=== PATIENT | female | born 1970 | race American Indian/Alaskan Native ===

== ENCOUNTER 2016-09-16 00:17 | Emergency (ER) | payer OTHER ==
--- NOTE | 2016-09-11 00:22 | Emergency Department Report ---
HPI - General Chief Complaint: Overdose Time Seen by Provider: 09/11/16 00:04 - HPI HPI: Patient took 2 handfuls of Benadryl pills, she was feeling stressed. Family thought this was done as a suicidal gesture. Patient drowsy minimal information obtained from her. ED Past Medical Hx - Past Medical History Previous Medical History?: Yes Hx Hypertension: Yes Additional medical history: fibromyalgia, anemia, pulmonary hypertension, bone spurs R shoulder - Surgical History Past Surgical History?: Yes Additional Surgical History: eye surgery "shorten the muscle between my eyes," "a couple of abortions" - Medications Home Medications: Home Medications Medication Instructions Recorded Confirmed Last Taken Type Iron 360 mg PO DAILY 09/11/16 09/11/16 09/10/16 11:00 History ED Review of Systems ROS: Stated complaint: OVERDOSE Other details as noted in HPI Physical Exam - Physical Exam Vital Signs: Vital Signs 09/11/16 00:06 Temperature 97.9 F Pulse Rate 88 Respiratory 14 Rate Blood Pressure 135/84 O2 Sat by Pulse 97 Oximetry Physical Exam: Gen. Drowsy but arousable Head atraumatic normocephalic Eyes PERR LA EOMI Chest regular rate and rhythm normal S1-S2 lungs clear bilaterally Abdomen soft nondistended Back no point tenderness paravertebral tenderness Neuro no focal deficit. Psych normal mood. ED Course Vital Signs 09/11/16 00:06 Temperature 97.9 F Pulse Rate 88 Respiratory 14 Rate Blood Pressure 135/84 O2 Sat by Pulse 97 Oximetry - Reevaluation(s) Reevaluation #1: 09/11/16 01:34 Poison control was contacted by nurse, it was recommended the patient be observed for the 6 hour prior to medical clearance. ED Medical Decision Making - Lab Data Result diagrams: 09/11/16 00:42 09/11/16 00:42 - EKG Data -: EKG Interpreted by Me EKG shows normal: sinus rhythm Rate: normal - EKG Data When compared to previous EKG there are: previous EKG unavailable Interpretation: no acute changes Critical care attestation.: If time is entered above; I have spent that time in minutes in the direct care of this critically ill patient, excluding procedure time. ED Disposition Clinical Impression: Suicidal behavior with attempted self-injury Is pt being admited?: No Does the pt Need Aspirin: No Condition: Stable Referrals: PRIMARY CARE, [Primary Care Provider] - 3-5 Days
[2016-09-11 00:57] LABS: Basophils % (Auto) 0.9 % (0.0-1.8); Eosinophils % (Auto) 1.8 % (0.0-4.3); Hematocrit 29.1 % (30.3-42.9); Mean Corpuscular HGB Conc 31 % (30-34); Mean Corpuscular Volume 72 fl (79-97); Platelet Count 271 K/mm3 (140-440); Red Blood Count 4.04 M/mm3 (3.65-5.03); Red Cell Distribution Width 19.2 % (13.2-15.2)
[2016-09-11 01:04] LABS: Mean Corpuscular Hemoglobin 22 pg (28-32)
[2016-09-11 01:15] LABS: Alanine Aminotransferase 12 units/L (7-56); Albumin 4.2 g/dL (3.9-5); Albumin/Globulin Ratio 1.2 %; Alkaline Phosphatase 89 units/L (35-129); Anion Gap 14 mmol/L; BUN/Creatinine Ratio 14.28; Blood Urea Nitrogen 10 mg/dL (7-17); Calcium 9.3 mg/dL (8.4-10.2); Carbon Dioxide 28 mmol/L (22-30); Chloride 103.4 mmol/L (98-107); Glucose 101 mg/dL (65-100); Potassium 3.5 mmol/L (3.6-5.0); Sodium 142 mmol/L (137-145); Total Protein 7.6 g/dL (6.3-8.2)
[2016-09-11 04:34] LABS: Urine Drugs of Abuse Note Disclamer
[2016-09-11 05:03] LABS: Bilirubin,Urine NEG (Negative); Blood,Urine NEG (Negative); Ketones,Urine TR mg/dL (Negative); Leukocyte Esterase,Urine NEG (Negative); Mucus,Urine 2+ /HPF; Nitrite,Urine NEG (Negative); Protein,Urine <15 mg/dL mg/dL (Negative); Urobilinogen,Urine < 2.0 mg/dL (<2.0)
--- NOTE | 2016-09-11 16:31 | Consultation ---
History of Present Illness - Reason for Consult Consult date: 09/11/16 Reason for consult: psychiatric evaluation, overdose - Chief Complaint Chief complaint: "PTSD" 46 year old female seen in the ER for psychiatric evaluation. She presented for overdose. Patient took 2 handfuls of Benadryl pills,. She reports taking 25 pills. Patient initially drowsy and later was alert for interview. She is irritable and dysphoric and reports the overdose was an impulsive attempt. She reports being triggered and had a flashback. She has a formal diagnosis of PTSD and has taken numerous SSRIs with poor response. She reports difficulty sleeping , anxiety, flashbacks, and hyperarousal symptoms. No psychotic signs/symptoms. No homicidal ideation. Per the record: - Past Medical History Previous Medical History?: Yes Hx Hypertension: Yes Additional medical history: fibromyalgia, anemia, pulmonary hypertension, bone spurs R shoulder - Surgical History Past Surgical History?: Yes Additional Surgical History: eye surgery "shorten the muscle between my eyes," "a couple of abortions" Social history per interview: Has a fiance. Guarded and agitated with further interviewing. Drinks alcohol occasionally- beer 2 weeks ago. no illicit substance use. UDS neg. Psychiatric history: previously on prozac, paxil, valium no suicide attempts previously Inpatient years ago. PTSD Medications and Allergies Allergies Allergy/AdvReac Type Severity Reaction Status Date / Time acetaminophen Allergy Severe Vomiting Verified 09/11/16 00:25 [From Tylenol-Codeine #3] codeine phosphate Allergy Severe Vomiting Verified 09/11/16 00:25 [From Tylenol-Codeine #3] Home Medications Medication Instructions Recorded Confirmed Last Taken Type Iron 360 mg PO DAILY 09/11/16 09/11/16 09/10/16 11:00 History Mental Status Exam - Vital signs Last Vital Signs Temp 98.2 F 09/11/16 11:37 Pulse 70 09/11/16 11:37 Resp 16 09/11/16 11:37 BP 136/76 09/11/16 11:37 Pulse Ox 98 09/11/16 11:37 Results Result Diagrams: 09/11/16 00:42 09/11/16 00:42 Abnormal lab results 09/11/16 09/11/16 09/11/16 Range/Units 00:42 00:42 00:42 Hgb 9.0 L (10.1-14.3) gm/dl Hct 29.1 L (30.3-42.9) % MCV 72 L (79-97) fl MCH 22 L (28-32) pg RDW 19.2 H (13.2-15.2) % Potassium 3.5 L (3.6-5.0) mmol/L Glucose 101 H (65-100) mg/dL Salicylates < 0.3 L (2.8-20.0) mg/dL All other labs normal. Assessment and Plan Assessment and plan: - Exam Orientation: time, place, person Affect: blunted Mood: irritable, dysphoric Thought content: denies SI, suicide attempt Thought Process: linear Perceptions: none Speech: normal rate and pattern Concentration: focused Motor activity: normal Level of consciousness: alert Memory: Intact Sleep Symptoms: Difficulty Falling Asleep Interaction: guarded Assessment and plan: Impression: suicide attempt PTSD DD: major depression Recommendation: She is currently on 1013. She declines medications due to poor response to previous medications. Recommend SSRI and this was discussed with her, risks vs. benefits.
--- NOTE | 2016-09-12 19:42 | Progress Note ---
Subjective - Reason for Consult Consult date: 09/12/16 Reason for consult: follow up - Chief Complaint Chief complaint: "I don't want to talk to anybody" 46 year old female seen in the ER for psychiatric evaluation. She presented for overdose. Patient reportedly took 2 handfuls of Benadryl pills,. She reports taking 25 pills. She remains irritable and dysphoric and reports the overdose was an impulsive attempt. She currently denies suicidal ideation. She is tearful and states she wants to go home. She is minimizing the ingestion of benadryl. No psychotic signs/symptoms. No homicidal ideation. Mental Status Exam - Vital signs Last Vital Signs Temp 98.7 F 09/12/16 09:51 Pulse 73 09/12/16 09:51 Resp 16 09/12/16 09:51 BP 107/61 09/12/16 09:51 Pulse Ox 95 09/12/16 09:51 Assessment and Plan - Exam Orientation: time, place, person Affect: blunted Mood: irritable, dysphoric Thought content: denies SI,, denies HI Thought Process: linear Perceptions: none Speech: normal rate and pattern Concentration: focused Motor activity: normal Level of consciousness: alert Memory: Intact Sleep Symptoms: Difficulty Falling Asleep Interaction: guarded Assessment and plan: Impression: suicide attempt PTSD DD: major depression Recommendation: She is currently on 1013. Transfer to inpatient psychiatric facility. She declines medications due to poor response to previous medications. Recommend SSRI and this was discussed with her, risks vs. benefits.
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
[2016-09-13] MEDS: ELAVIL PO SCH (22:08)
--- NOTE | 2016-09-14 14:23 | Progress Note ---
Subjective - Reason for Consult Consult date: 09/14/16 Reason for consult: Psychiatry Follow-up - Chief Complaint Chief complaint: "Hopefully" 46 year old female seen in the ER for psychiatric evaluation. Patient reportedly took 4 Benadryl pills possibly to overdose. Today patient is calm and cooperative during the assessment. She is adamant that she was not trying to kill herself when she took the pills. Per conversation with her boyfriend Chaparro Sanchez [phone] he stated that he felt that she did try to kill herself , because she has done this in the past. He stated she has a problem with depression and gambling (lottery tickets). He stated they got into an argument over money and "things" escalated. He stated if she is stable, she can return home. He want her to get therapy once discharged. She agree that she have a problem with gambling that needs to be addressed. She denies SI/HI's and AVH's. She rate her depression 4/10, with 10 being the worse. She is concerned that Chaparro may leave her. She denies any side effects from the Elavil. Mental Status Exam - Vital signs Last Vital Signs Temp 97.9 F 09/14/16 11:31 Pulse 93 H 09/14/16 11:31 Resp 20 09/14/16 11:32 BP 112/76 09/14/16 11:31 Pulse Ox 97 09/14/16 11:32 - Exam Narrative exam: MSE: Appearance: cooperative, emotional Behavior: regular eye contact Speech: regular rate and tone Mood: "Better" Affect: congruent Thought Process: linear Thought Content: denies SI/HI's and AVH's Motor Activity: lying in bed Cognition: A/Ox 3 Insight: fair Judgment:fair I Assessment and Plan Impression: Historical Dx: Depressive DO, PTSD. Today patient is calm and cooperative during the assessment. She denies SI/HI's. Recommendation/Plan: Continue 1013 with placement to inpatient psy services. Contiune Elavil 25 mg PO HS for depression/fibromyalgia. Discussed possible side effects of medication with patient. Discussed generalized coping skills with patient.
[2016-09-14] MEDS: ELAVIL PO SCH (22:09)
--- NOTE | 2016-09-15 15:13 | Progress Note ---
Subjective - Reason for Consult Consult date: 09/15/16 Reason for consult: follow up - Chief Complaint Chief complaint: "I'm getting better" 46 year old female seen in the ER for psychiatric evaluation. Patient reportedly took "4 or 5" Benadryl pills possibly to overdose. Today patient is calm and cooperative during the assessment. She is adamant that she was not trying to kill herself when she took the pills. She denies SI/HI's and AVH's. She is not dysphoric today and is interacting appropriately. Mental Status Exam - Vital signs Last Vital Signs Temp 98.6 F 09/15/16 08:15 Pulse 71 09/15/16 08:15 Resp 18 09/15/16 08:55 BP 102/60 09/15/16 08:15 Pulse Ox 99 09/15/16 08:15 Assessment and Plan - Exam Orientation: time, place, person Affect: congruent Mood: calm Thought content: denies SI, denies HI Thought Process: linear Perceptions: none Speech: normal rate and pattern Concentration: focused Motor activity: normal Level of consciousness: alert Memory: Intact Sleep Symptoms: improved Interaction: cooperative Assessment and plan: Impression: suicide attempt PTSD DD: major depression Recommendation: She is currently on 1013. Reevaluate in 24 hours. Continue Elavil for depressive symptoms.
[2016-09-15 20:02] VITALS: BP 122/76
[2016-09-15] MEDS: ELAVIL PO SCH (22:13)
[~2016-09-16 00:17] MED LIST: NACL 0.9% 1000 ML 1,000 ML IV ONE
--- NOTE | 2016-09-16 13:57 | Progress Note ---
Subjective - Reason for Consult Consult date: 09/16/16 Reason for consult: Psychiatry Follow-up - Chief Complaint Chief complaint: "I hope I can leave" 46 year old female seen in the ER for psychiatric evaluation. Patient reportedly took "4 or 5" Benadryl pills possibly to overdose. Today patient is calm and cooperative during the assessment. She continue to deny that she tried to kill herself by taking pills per her admission. I asked about her previous suicide attempt and she would not answer. She denies SI/HI's and AVH's. She rate her depression 5/10, with 10 being the worse. Mental Status Exam - Vital signs Last Vital Signs Temp 98.4 F 09/15/16 20:01 Pulse 94 H 09/15/16 20:01 Resp 16 09/16/16 12:41 BP 122/76 09/15/16 20:01 Pulse Ox 97 09/16/16 12:41 - Exam Narrative exam: MSE: Appearance: cooperative, emotional Behavior: regular eye contact Speech: regular rate and tone Mood: "okay" Affect: congruent Thought Process: circumstantial Thought Content: denies SI/HI's and AVH's Motor Activity: lying in bed Cognition: A/Ox 3 Insight: limited Judgment:limited Assessment and Plan Impression: Historical Dx: Depressive DO, PTSD. Today patient is calm and cooperative during the assessment. She denies SI/HI's. Recommendation/Plan: Continue 1013 with placement to inpatient psy services. Contiune Elavil 25 mg PO HS for depression/fibromyalgia. Discussed possible side effects of medication with patient. Discussed generalized coping skills with patient.
== END 2016-09-16 12:42 ==
LOC: ED 00:17
DX: T14.91 Suicide attempt (principal); I10 Essential (primary) hypertension
CPT/HCPCS: 36415; 80053; 80307; 81001; 81025; 85025; 96360; 96361; 99285; G0480; J7030; 80320

== ENCOUNTER 2016-10-13 11:00 | Inpatient (IN) | payer SELFPAY ==
[2016-10-13 11:51] LABS: Hematocrit 38.4 % (30.3-42.9); Mean Corpuscular HGB Conc 31 % (30-34); Mean Corpuscular Volume 74 fl (79-97); Platelet Count 357 K/mm3 (140-440); Red Blood Count 5.18 M/mm3 (3.65-5.03); White Blood Count 11.9 K/mm3 (4.5-11.0)
[2016-10-13 12:06] LABS: Alanine Aminotransferase 17 units/L (7-56); Albumin 4.6 g/dL (3.9-5); Albumin/Globulin Ratio 1.2 %; Alkaline Phosphatase 104 units/L (35-129); Anion Gap 20 mmol/L; BUN/Creatinine Ratio 8.33; Blood Urea Nitrogen 5 mg/dL (7-17); Calcium 9.7 mg/dL (8.4-10.2); Carbon Dioxide 28 mmol/L (22-30); Chloride 101.7 mmol/L (98-107); Glucose 100 mg/dL (65-100); Lipase 15 units/L (13-60); Potassium 4.4 mmol/L (3.6-5.0); Sodium 145 mmol/L (137-145); Total Protein 8.4 g/dL (6.3-8.2)
[2016-10-13 12:11] LABS: Mean Corpuscular Hemoglobin 23 pg (28-32); Red Cell Distribution Width 26.1 % (13.2-15.2)
[2016-10-13 12:14] LABS: Bilirubin,Urine NEG (Negative); Blood,Urine SM (Negative); Ketones,Urine TR mg/dL (Negative); Leukocyte Esterase,Urine NEG (Negative); Mucus,Urine FEW /HPF; Nitrite,Urine NEG (Negative); Urobilinogen,Urine < 2.0 mg/dL (<2.0)
[2016-10-13 13:04] LABS: Anisocytosis 3+; Basophils % (Manual) 0 % (0.0-1.8); Blastocytes % (Manual) 0 %; Diff Status Complete; Hypochromasia 1+
[2016-10-13] MEDS ORDERED: PEPCID IV ONE (21:06)
[2016-10-13] MEDS ORDERED: DILAUDID IV ONE (21:06)
[2016-10-13] MEDS ORDERED: NACL 0.9% 1000 ML 1,000 ML IV ONE (21:06)
[2016-10-13] MEDS ORDERED: ZOFRAN IV ONE (21:06)
[2016-10-13] MEDS ORDERED: BENTYL IM ONE (21:06)
--- NOTE | 2016-10-13 21:07 | Emergency Department Report ---
ED General Adult HPI - General Chief complaint: Abdominal Pain Stated complaint: UPPER LEFT ABD PAIN Time Seen by Provider: 10/13/16 20:49 Source: patient, EMS (ems notes not available at time of chart dictation), RN notes reviewed, old records reviewed Mode of arrival: Ambulatory Limitations: No Limitations - History of Present Illness Initial comments: This is a 46-year-old female. The patient is previously unknown to me. Past medical history includes fibromyalgia, anemia, pulmonary hypertension. The patient presents to the ER with a complaint of left lateral chest wall pain , left lower quadrant abdominal pain, right upper quadrant abdominal pain, nausea and vomiting. No headache, neck pain, chest pain or shortness of breath. No homicidality or suicidality. The pain is sharp. It increases with palpation. It decreases with rest. She denies irritative and obstructive urinary symptoms. There is no diaphoresis. -: Gradual Location: abdomen Radiation: back Severity scale (0 -10): 6 Quality: aching Consistency: constant Improves with: rest Worsens with: movement Associated Symptoms: loss of appetite, malaise, nausea/vomiting, weakness. denies: confusion, chest pain, cough, syncope - Related Data Home Medications Medication Instructions Recorded Confirmed Last Taken Pantoprazole [Protonix TAB] 20 mg PO QDAY 10/13/16 10/13/16 Unknown Allergies Allergy/AdvReac Type Severity Reaction Status Date / Time acetaminophen Allergy Severe Vomiting Verified 09/11/16 00:25 [From Tylenol-Codeine #3] codeine phosphate Allergy Severe Vomiting Verified 09/11/16 00:25 [From Tylenol-Codeine #3] ED Review of Systems ROS: Stated complaint: UPPER LEFT ABD PAIN Other details as noted in HPI Constitutional: malaise. denies: fever Eyes: denies: vision change ENT: denies: epistaxis Respiratory: denies: cough Cardiovascular: denies: chest pain Gastrointestinal: abdominal pain, nausea, vomiting Genitourinary: denies: urgency, dysuria Musculoskeletal: back pain Skin: denies: lesions Neurological: weakness Psychiatric: anxiety ED Past Medical Hx - Past Medical History Previous Medical History?: Yes Hx Hypertension: Yes (Pulmonary HTN;) Hx GERD: Yes Additional medical history: fibromyalgia, anemia, pulmonary hypertension, bone spurs R shoulder - Surgical History Past Surgical History?: Yes Additional Surgical History: eye surgery "shorten the muscle between my eyes," "a couple of abortions" - Social History Smoking Status: Current Every Day Smoker Substance Use Type: Alcohol - Medications Home Medications: Home Medications Medication Instructions Recorded Confirmed Last Taken Type Pantoprazole [Protonix TAB] 20 mg PO QDAY 10/13/16 10/13/16 Unknown History ED Physical Exam - General Limitations: No Limitations General appearance: alert, in no apparent distress - Head Head exam: Present: atraumatic, normocephalic - Eye Eye exam: Present: normal appearance, EOMI. Absent: nystagmus - ENT ENT exam: Present: normal exam, normal orophraynx, mucous membranes moist, normal external ear exam - Neck Neck exam: Present: normal inspection, full ROM. Absent: tenderness, meningismus - Respiratory Respiratory exam: Present: normal lung sounds bilaterally, chest wall tenderness (there is reproducible left sided lateral chest wall tenderness. The breast exam is unremarkable and within normal limits. Escorted by nurse Miryam Galvan). Absent: respiratory distress, wheezes, rales, rhonchi, stridor - Cardiovascular Cardiovascular Exam: Present: regular rate, normal rhythm, normal heart sounds. Absent: bradycardia, tachycardia, irregular rhythm, systolic murmur, diastolic murmur, rubs, gallop - GI/Abdominal GI/Abdominal exam: Present: soft, tenderness, normal bowel sounds. Absent: guarding, rebound, rigid, pulsatile mass - Extremities Exam Extremities exam: Present: normal inspection, full ROM, normal capillary refill. Absent: tenderness, pedal edema, joint swelling, calf tenderness - Back Exam Back exam: Present: normal inspection, full ROM, paraspinal tenderness. Absent : tenderness, CVA tenderness (R), CVA tenderness (L), muscle spasm - Neurological Exam Neurological exam: Present: alert, oriented X3, other (Extraocular movements intact. Tongue midline. No facial droop. Facial sensation intact to light touch in the V1, V2, V3 distribution bilaterally. 5 and 5 strength in 4 extremities.. Sensation is intact to light touch in 4 extremities.). Absent: motor sensory deficit - Psychiatric Psychiatric exam: Present: anxious - Skin Skin exam: Present: warm, dry, intact, normal color. Absent: rash ED Course Vital Signs 10/13/16 10/13/16 10/13/16 11:11 19:57 21:48 Temperature 98.0 F Pulse Rate 66 72 Respiratory 18 18 16 Rate Blood Pressure 171/104 Blood Pressure 171/94 [Right] O2 Sat by Pulse 99 100 Oximetry - Reevaluation(s) Reevaluation #1: 10/14/16 01:15 right upper quadrant ultrasound suggests cholecystitis. ED Medical Decision Making - Lab Data Result diagrams: 10/13/16 11:31 10/13/16 11:31 Vital Signs 10/13/16 10/13/16 10/13/16 11:11 19:57 21:48 Temperature 98.0 F Pulse Rate 66 72 Respiratory 18 18 16 Rate Blood Pressure 171/104 Blood Pressure 171/94 [Right] O2 Sat by Pulse 99 100 Oximetry Lab Results 10/13/16 10/13/16 10/13/16 Range/Units 11:31 11:31 11:31 WBC 11.9 H (4.5-11.0) K/mm3 RBC 5.18 H (3.65-5.03) M/mm3 Hgb 12.0 (10.1-14.3) gm/dl Hct 38.4 (30.3-42.9) % MCV 74 L (79-97) fl MCH 23 L (28-32) pg MCHC 31 (30-34) % RDW 26.1 H (13.2-15.2) % Plt Count 357 (140-440) K/mm3 Add Manual Diff Complete Total Counted 100 Seg Neuts % (Manual) 84.0 H (40.0-70.0) % Band Neutrophils % 0 % Lymphocytes % (Manual) 11.0 L (13.4-35.0) % Reactive Lymphs % (Man) 0 % Monocytes % (Manual) 4.0 (0.0-7.3) % Eosinophils % (Manual) 1.0 (0.0-4.3) % Basophils % (Manual) 0 (0.0-1.8) % Metamyelocytes % 0 % Myelocytes % 0 % Promyelocytes % 0 % Blast Cells % 0 % Nucleated RBC % Not Reportable Seg Neutrophils # Man 10.0 H (1.8-7.7) K/mm3 Band Neutrophils # 0.0 K/mm3 Lymphocytes # (Manual) 1.3 (1.2-5.4) K/mm3 Abs React Lymphs (Man) 0.0 K/mm3 Monocytes # (Manual) 0.5 (0.0-0.8) K/mm3 Eosinophils # (Manual) 0.1 (0.0-0.4) K/mm3 Basophils # (Manual) 0.0 (0.0-0.1) K/mm3 Metamyelocytes # 0.0 K/mm3 Myelocytes # 0.0 K/mm3 Promyelocytes # 0.0 K/mm3 Blast Cells # 0.0 K/mm3 WBC Morphology Not Reportable Hypersegmented Neuts Not Reportable Hyposegmented Neuts Not Reportable Hypogranular Neuts Not Reportable Smudge Cells Not Reportable Toxic Granulation Not Reportable Toxic Vacuolation Not Reportable Dohle Bodies Not Reportable Pelger-Huet Anomaly Not Reportable Gladys Rods Not Reportable Platelet Estimate Appears normal Clumped Platelets Not Reportable Plt Clumps, EDTA Not Reportable Large Platelets Not Reportable Giant Platelets Not Reportable Platelet Satelliting Not Reportable Plt Morphology Comment Not Reportable RBC Morphology Not Reportable Dimorphic RBCs Not Reportable Polychromasia Not Reportable Hypochromasia 1+ Poikilocytosis Not Reportable Anisocytosis 3+ Microcytosis Not Reportable Macrocytosis Not Reportable Spherocytes Not Reportable Pappenheimer Bodies Not Reportable Sickle Cells Not Reportable Target Cells Not Reportable Tear Drop Cells Not Reportable Ovalocytes Not Reportable Helmet Cells Not Reportable [place] Bodies Not Reportable Paxton Rings Not Reportable Verna Cells Not Reportable Bite Cells Not Reportable Crenated Cell Not Reportable Elliptocytes Not Reportable Acanthocytes (Spur) Not Reportable Rouleaux Not Reportable Hemoglobin C Crystals Not Reportable Schistocytes Not Reportable Malaria parasites Not Reportable Mars Bodies Not Reportable Hem Pathologist Commnt No PT (12.2-14.9) Sec. INR (0.87-1.13) APTT (24.2-36.6) Sec. D-Dimer (0-234) ng/mlDDU Sodium 145 (137-145) mmol/L Potassium 4.4 (3.6-5.0) mmol/L Chloride 101.7 (98-107) mmol/L Carbon Dioxide 28 (22-30) mmol/L Anion Gap 20 mmol/L BUN 5 L (7-17) mg/dL Creatinine 0.6 L (0.7-1.2) mg/dL Estimated GFR > 60 ml/min BUN/Creatinine Ratio 8.33 % Glucose 100 (65-100) mg/dL Lactic Acid (0.7-2.0) mmol/L Calcium 9.7 (8.4-10.2) mg/dL Total Bilirubin 0.50 (0.1-1.2) mg/dL AST 18 (5-40) units/L ALT 17 (7-56) units/L Alkaline Phosphatase 104 (35-129) units/L Total Protein 8.4 H (6.3-8.2) g/dL Albumin 4.6 (3.9-5) g/dL Albumin/Globulin Ratio 1.2 % Lipase 15 (13-60) units/L HCG, Qual Negative (Negative) Urine Color (Yellow) Urine Turbidity (Clear) Urine pH (5.0-7.0) Ur Specific [place] (1.003-1.030) Urine Protein (Negative) mg/dL Urine Glucose (UA) (Negative) mg/dL Urine Ketones (Negative) mg/dL Urine Blood (Negative) Urine Nitrite (Negative) Urine Bilirubin (Negative) Urine Urobilinogen (<2.0) mg/dL Ur Leukocyte Esterase (Negative) Urine WBC (Auto) (0.0-6.0) /HPF Urine RBC (Auto) (0.0-6.0) /HPF U Epithel Cells (Auto) (0-13.0) /HPF Urine Mucus /HPF 10/13/16 10/13/16 10/13/16 Range/Units 11:47 21:21 23:44 WBC (4.5-11.0) K/mm3 RBC (3.65-5.03) M/mm3 Hgb (10.1-14.3) gm/dl Hct (30.3-42.9) % MCV (79-97) fl MCH (28-32) pg MCHC (30-34) % RDW (13.2-15.2) % Plt Count (140-440) K/mm3 Add Manual Diff Total Counted Seg Neuts % (Manual) (40.0-70.0) % Band Neutrophils % % Lymphocytes % (Manual) (13.4-35.0) % Reactive Lymphs % (Man) % Monocytes % (Manual) (0.0-7.3) % Eosinophils % (Manual) (0.0-4.3) % Basophils % (Manual) (0.0-1.8) % Metamyelocytes % % Myelocytes % % Promyelocytes % % Blast Cells % % Nucleated RBC % Seg Neutrophils # Man (1.8-7.7) K/mm3 Band Neutrophils # K/mm3 Lymphocytes # (Manual) (1.2-5.4) K/mm3 Abs React Lymphs (Man) K/mm3 Monocytes # (Manual) (0.0-0.8) K/mm3 Eosinophils # (Manual) (0.0-0.4) K/mm3 Basophils # (Manual) (0.0-0.1) K/mm3 Metamyelocytes # K/mm3 Myelocytes # K/mm3 Promyelocytes # K/mm3 Blast Cells # K/mm3 WBC Morphology Hypersegmented Neuts Hyposegmented Neuts Hypogranular Neuts Smudge Cells Toxic Granulation Toxic Vacuolation Dohle Bodies Pelger-Huet Anomaly Gladys Rods Platelet Estimate Clumped Platelets Plt Clumps, EDTA Large Platelets Giant Platelets Platelet Satelliting Plt Morphology Comment RBC Morphology Dimorphic RBCs Polychromasia Hypochromasia Poikilocytosis Anisocytosis Microcytosis Macrocytosis Spherocytes Pappenheimer Bodies Sickle Cells Target Cells Tear Drop Cells Ovalocytes Helmet Cells [place] Bodies Paxton Rings Verna Cells Bite Cells Crenated Cell Elliptocytes Acanthocytes (Spur) Rouleaux Hemoglobin C Crystals Schistocytes Malaria parasites Mars Bodies Hem Pathologist Commnt PT 14.5 (12.2-14.9) Sec. INR 1.14 H (0.87-1.13) APTT 29.3 (24.2-36.6) Sec. D-Dimer 750.34 H (0-234) ng/mlDDU Sodium (137-145) mmol/L Potassium (3.6-5.0) mmol/L Chloride (98-107) mmol/L Carbon Dioxide (22-30) mmol/L Anion Gap mmol/L BUN (7-17) mg/dL Creatinine (0.7-1.2) mg/dL Estimated GFR ml/min BUN/Creatinine Ratio % Glucose (65-100) mg/dL Lactic Acid 0.70 (0.7-2.0) mmol/L Calcium (8.4-10.2) mg/dL Total Bilirubin (0.1-1.2) mg/dL AST (5-40) units/L ALT (7-56) units/L Alkaline Phosphatase (35-129) units/L Total Protein (6.3-8.2) g/dL Albumin (3.9-5) g/dL Albumin/Globulin Ratio % Lipase (13-60) units/L HCG, Qual (Negative) Urine Color Yellow (Yellow) Urine Turbidity Clear (Clear) Urine pH 7.0 (5.0-7.0) Ur Specific [place] 1.015 (1.003-1.030) Urine Protein 30 mg/dl (Negative) mg/dL Urine Glucose (UA) Neg (Negative) mg/dL Urine Ketones Tr (Negative) mg/dL Urine Blood Sm (Negative) Urine Nitrite Neg (Negative) Urine Bilirubin Neg (Negative) Urine Urobilinogen < 2.0 (<2.0) mg/dL Ur Leukocyte Esterase Neg (Negative) Urine WBC (Auto) 3.0 (0.0-6.0) /HPF Urine RBC (Auto) 2.0 (0.0-6.0) /HPF U Epithel Cells (Auto) 3.0 (0-13.0) /HPF Urine Mucus Few /HPF - EKG Data -: EKG Interpreted by Or EKG shows normal: sinus rhythm, axis, QRS complexes, ST-T waves - EKG Data When compared to previous EKG there are: no significant change 10/14/16 00:53 normal sinus, 96 beats minute, normal axis, QTC 469 ms, abnormal EKG, not morphologically consistent with STEMI, appears unchanged when compared to prior - Radiology Data Radiology results: report reviewed, image reviewed X-ray of the chest is negative. CT scan of the chest is negative for pulmonary embolus. Nonspecific pneumonitis /infiltrate is suggested. CT scan of the abdomen and pelvis suggest cholecystitis. Right upper quadrant ultrasound is pending at this time. - Medical Decision Making Differential diagnosis: Pneumonia, cholecystitis, tuberculosis, urinary tract infection Assessment and plan: 46-year-old female with a complaint of left lateral chest wall pain, abdominal pain, right upper quadrant pain. She does have a positive [place] sign. CT scan of the abdomen and pelvis suggest cholecystitis. CT scan of the chest suggest possible right upper lobe pneumonia. Clinical picture is complicated. Uncertain if the patient has true cholecystitis and atypical pneumonia or both. Case is discussed with the general surgeon on-call, Dr. Garnett, who will see the patient as a consult, and he recommends right upper quadrant ultrasound. The case is also discussed with the Hospital physician, Dr. Arnold, she accepts the patient to her service. Given that tuberculosis presenting atypically is in the differential, Levaquin/ fluoroquinolones will be withheld. The patient will be treated empirically with ceftriaxone and azithromycin, blood cultures will be drawn. Patient will be placed on isolation precautions. Critical care attestation.: If time is entered above; I have spent that time in minutes in the direct care of this critically ill patient, excluding procedure time. ED Disposition Clinical Impression: Cholecystitis, Right upper lobe consolidation Nausea and vomiting Qualifiers: Vomiting type: unspecified Vomiting Intractability: non-intractable Qualified Code(s): R11.2 - Nausea with vomiting, unspecified Disposition: DC-09 OP ADMIT IP TO THIS HOSP Is pt being admited?: Yes Condition: Good Instructions: Abdominal Pain (ED) Referrals: PRIMARY CARE, [Primary Care Provider] - 3-5 Days
[2016-10-13] MEDS ORDERED: NACL ONE (21:13)
[2016-10-13 21:43] LABS: INR 1.14 (0.87-1.13)
[2016-10-13 21:45] LABS: Partial Thromboplastin Time 29.3 Sec. (24.2-36.6)
--- NOTE | 2016-10-13 23:24 | Cat Scan Report ---
FINAL REPORT EXAM: CT ABDOMEN PELVIS W CON HISTORY: ruq, luq, left flank pain TECHNIQUE: Dynamic helical CT scan through the abdomen and pelvis during and again after intravenous injection of iodinated contrast. Images are reconstructed in the sagittal and coronal planes. Oral contrast was not given. PRIORS: None. FINDINGS: The lung bases are clear. The gallbladder wall is enhancing and thickened and there is pericholecystic fluid. There is a 2.0 cm stone in the gallbladder. There is no biliary dilatation. There is diffuse low-attenuation of the liver consistent with fatty infiltration. The liver is enlarged measuring 19.2 cm in craniocaudal dimension. The pancreas, spleen and adrenal glands appear normal. The kidneys appear normal. The pelvic organs appear grossly normal. The stomach appears grossly within normal limits. There are no abnormally dilated loops of bowel. The abdominal aorta has a normal diameter. The bones are diffusely sclerotic IMPRESSION: 1. Findings are consistent with acute cholecystitis and cholelithiasis. 2. Generalized osseous sclerosis of the entire skeleton may be due to myelofibrosis or osteopetrosis among other causes. Please correlate with clinical history. Renal osteodystrophy may also result in dense bones but the kidneys appear normal.
--- NOTE | 2016-10-13 23:34 | Cat Scan Report ---
FINAL REPORT EXAM: CT ANGIO CHEST HISTORY: left chest wall pain, back pain TECHNIQUE: High-resolution helical axial images were obtained of the chest during intravenous administration of iodinated contrast. Images are reconstructed in the sagittal and coronal planes. PRIORS: None. FINDINGS: There is no evidence of pulmonary embolism, the pulmonary arteries opacify normally. The heart and thoracic aorta appear normal. There is patchy interstitial thickening bilaterally. There are small ground-glass opacities in the right upper lobe. The bones are diffusely sclerotic. IMPRESSION: 1. Patchy interstitial thickening may be due to chronic interstitial lung disease. Small ground-glass opacities in the right upper lobe may represent early pneumonia or alveolitis. 2. No evidence of acute PE. 3. Generalized osseous sclerosis of the entire skeleton may be due to myelofibrosis or osteopetrosis among other causes. Please correlate with clinical history. Renal osteodystrophy may also result in dense bones but the kidneys appear normal.
[2016-10-13] MEDS ORDERED: ZOSYN/NS 4.5GM/100ML 4.5 GM/100 ML VIAL IV ONE (23:35)
[2016-10-14] MEDS ORDERED: ZITHROMAX 500 MG in NACL 0.9% 250ML 250 ML IV ONE (00:55)
[2016-10-14] MEDS ORDERED: ROCEPHIN/NS 1 GM/50 ML 1 GM/50 ML BAG IV ONE (00:55)
--- NOTE | 2016-10-14 01:13 | Ultrasound Report ---
FINAL REPORT EXAM: US ABDOMEN LIMITED HISTORY: ruq pain ? autumn TECHNIQUE: Real-time sonography was performed of the right upper quadrant and images are submitted for interpretation. PRIORS: None. FINDINGS: The liver has a diffusely decreased echogenicity consistent with fatty infiltration. There is the 3.2 cm stone in the gallbladder. There is a small amount of pericholecystic fluid and the gallbladder is distended. The common bile duct is dilated up to 1 cm. A distal CBD stone is not demonstrated. IMPRESSION: Cholelithiasis. Findings suggest acute cholecystitis. Dilated common bile duct up to 1 cm.
[2016-10-14] MEDS ORDERED: DULCOLAX PR PRN (02:19)
[2016-10-14] MEDS ORDERED: MILK OF MAGNESIA PO PRN (02:19)
[2016-10-14] MEDS ORDERED: ZOFRAN IV PRN (02:19)
--- NOTE | 2016-10-14 02:19 | History and Physical Report ---
History of Present Illness Date of examination: 10/14/16 History of present illness: 46-year-old woman with a history of reflux, fibromyalgia, pulmonary hypertension , bipolar, PTSD, ADHD comes emergency room with complaints of left mid pain on the side, abdominal pain located in the right upper quadrant which she describes a burning sensation, constant for 3 days, intensity 8/10, radiating across the abdomen, she cannot identify exacerbating or relieving factors. Complaining of nausea vomiting. Review Of Systems: Constitutional: no fever, chills, weight loss Ears, eyes, nose, mouth and throat: no nasal congestion, no nasal discharge, no sinus pressure, blurry vision, diplopia Neck: No neck pain or rigidity. Cardiovascular: chest pain, orthopnea, palpitations Respiratory: No shortness of breath, cough Gastrointestinal: hematochezia Genitourinary : no dysuria, frequency , hematuria Musculoskeletal: no joint swelling or muscle ache Integumentary: no rash, no pruritis Neurological: no parathesias, focal weakness Endocrine: no cold or heat intolerance, no polyuria or polydipsia Hematologic/Lymphatic: no easy bruising, no easy bleeding, no gland swelling Allergic/Immunologic: no urticaria, no angioedema. PAST MEDICAL HISTORY:reflux, fibromyalgia, pulmonary hypertension, bipolar, PTSD , ADHD PAST SURGICAL HISTORY: Eye surgery FAMILY HISTORY: Hypertension SOCIAL HISTORY: Smoke 5 cigarettes a day, social alcohol, no drugs Medications and Allergies Allergies Allergy/AdvReac Type Severity Reaction Status Date / Time acetaminophen Allergy Severe Vomiting Verified 09/11/16 00:25 [From Tylenol-Codeine #3] codeine phosphate Allergy Severe Vomiting Verified 09/11/16 00:25 [From Tylenol-Codeine #3] Home Medications Medication Instructions Recorded Confirmed Last Taken Type Pantoprazole [Protonix TAB] 20 mg PO QDAY 10/13/16 10/13/16 Unknown History Exam - Physical Exam Narrative exam: Gen. appearance: Patient lying in bed, no apparent distress HEENT: Normocephalic, atraumatic, pupils equally round and reactive to light, extraocular movement intact, and no sclericterus,. No JVD or thyromegaly or nodule,neck supple, no carotid bruit ,mucous membranes moist, no exudate or erythema Heart: S1, S2, regular rate and rhythm Lungs: Clear to auscultation bilaterally, breathing comfortable Abdomen: Positive bowel sounds, tender in right upper quadrant, nondistended, no organomegaly Extremity: No edema, cyanosis, clubbing Skin: No rash, nodules, warm, dry Neuro: Oriented 3, cranial nerves II-12 intact, speech is fluent, motor and sensory intact - Constitutional Vitals: Temp Pulse Resp BP Pulse Ox 98.0 F 68 18 139/70 99 10/13/16 11:11 10/14/16 01:16 10/14/16 01:16 10/14/16 01:16 10/14/16 01:16 Results - Labs CBC & Chem 7: 10/13/16 11:31 10/13/16 11:31 Labs: Abnormal lab results 10/13/16 10/13/16 10/13/16 Range/Units 11:31 11:31 21:21 WBC 11.9 H (4.5-11.0) K/mm3 RBC 5.18 H (3.65-5.03) M/mm3 MCV 74 L (79-97) fl MCH 23 L (28-32) pg RDW 26.1 H (13.2-15.2) % Seg Neuts % (Manual) 84.0 H (40.0-70.0) % Lymphocytes % (Manual) 11.0 L (13.4-35.0) % Seg Neutrophils # Man 10.0 H (1.8-7.7) K/mm3 INR 1.14 H (0.87-1.13) D-Dimer 750.34 H (0-234) ng/mlDDU BUN 5 L (7-17) mg/dL Creatinine 0.6 L (0.7-1.2) mg/dL Total Protein 8.4 H (6.3-8.2) g/dL - Imaging and Cardiology CT scan - abdomen: report reviewed CT scan - chest: report reviewed CT scan - pelvis: report reviewed Assessment and Plan Assessment Acute cholecystitis Pneumonia versus pneumonitis Pulmonary Hypertension Hypertension Bipolar PTSD ADHD Plan Admit to medicine Placed on bowel rest, IV fluids, consult surgery Start IV morphine, check HIDA scan, start IV Levaquin Start DVT prophylaxis
[2016-10-14] MEDS ORDERED: LEVAQUIN 750MG/150ML 750 MG/150 ML BAG IV SCH (03:00)
[2016-10-14] MEDS ORDERED: LEVAQUIN 750MG/150ML 750 MG/150 ML BAG IV ONE (04:01)
[2016-10-14] MEDS: NACL 0.45% 1000 ML 1,000 ML IV SCH ×2 (05:02→18:58)
--- NOTE | 2016-10-14 08:00 | Consultation ---
History of Present Illness Consult date: 10/14/16 Reason for consult: abdominal pain Chief complaint: abd pain - History of present illness History of present illness: 46 year old female with a 3 day hx of RUQ/epigastric pain without characteristic radiation, some nausea,who presented to the ER with a WBC 12k, normal LFTs CT abd pelvis suspicious for acute cholecystitis (versus chronic cholecystitis?) ultrasound of RUQ less impressive for impacted stone in neck of gallbladder, some wall thickening and pericholecystic fluid. The patient had an elevated D dimer and had a CT of the chest which I have reviewed with Dr. Carrillo ([facility]) and I do not believe she has pneumonia, but unusual bone changes, lung changes, no PE. The patient has Bipolar disorder, and states she was told at [place] she has pulmonary HTN. No records available to review. Past History Past Medical History: other (hx pulm htn, bipolar disorder, fibromyalgia) Past Surgical History: No surgical history Medications and Allergies Allergies Allergy/AdvReac Type Severity Reaction Status Date / Time acetaminophen Allergy Severe Vomiting Verified 09/11/16 00:25 [From Tylenol-Codeine #3] codeine phosphate Allergy Severe Vomiting Verified 09/11/16 00:25 [From Tylenol-Codeine #3] Home Medications Medication Instructions Recorded Confirmed Last Taken Type Pantoprazole [Protonix TAB] 20 mg PO QDAY 10/13/16 10/13/16 Unknown History Active Meds: Active Medications Bisacodyl (Dulcolax) 10 mg MO QDAY PRN PRN Reason: Constipation unrelieved by MOM Enoxaparin Sodium (Lovenox) 40 mg SUB-Q QDAY [facility] Sodium Chloride (Nacl 0.45% 1000 Ml) 1,000 mls @ 125 mls/hr IV DIRECT [facility] Last Admin: 10/14/16 05:02 Dose: 125 mls/hr Levofloxacin/Dextrose (Levaquin 750mg/150ml) 750 mg in 150 mls @ 100 mls/hr IV Q24H [facility] Last Admin: 10/14/16 05:02 Dose: 100 mls/hr Magnesium Hydroxide (Milk Of Magnesia) 30 ml PO Q4H PRN PRN Reason: Constipation Morphine Sulfate (Morphine) 2 mg IV Q4H PRN PRN Reason: Pain, Moderate (4-6) Ondansetron HCl (Zofran) 4 mg IV Q8H PRN PRN Reason: N/V unrelieved by Reglan Review of Systems - Constitutional other (abd pain) Exam Vital Signs Temp Pulse Resp BP Pulse Ox 98.0 F 66 18 171/104 99 10/13/16 11:11 10/13/16 11:11 10/13/16 11:11 10/13/16 11:11 10/13/16 11:11 - General physical appearance Positive: no distress - Eyes Positive: PERRL, normal occular movement - ENT Positive: normal pinna, normal nares, normal mucosa, no hearing loss, no congestion - Neck Positive: no masses, no bruits, trachea midline, no venous distension - Respiratory Positive: normal expansion, normal respiratory effort, clear to auscultation - Cardiovascular Rhythm: regular Heart Sounds: Present: S1 & S2. Absent: rub, click - Extremities Extremities: no ischemia, pulses symmetrical, No edema Peripheral Pulses: within normal limits - Breasts Breasts: normal - Abdomen Abdomen: Present: tender (to deep palpation RUQ, no rebound or guarding), bowel sounds normal Hernia: none - Neurologic Neurologic: alert and oriented to time, place and person, motor strength and sensation are grossly intact - Psychiatric Psychiatric: appropriate mood/affect, intact judgment & insight Results - Labs 10/13/16 11:31 10/13/16 11:31 Assessment and Plan Complicated case, patient has abnormal findings of GB, u/s RUQ less impressive than CT-agree with HIDA scan to rule out cystic duct obstruction I need Cardiology evaluation of pulm hypertension with surgical clearance I do not believe patient has pneumonia keep NPO, add flagyll, iv hydration, HIDA scan today. Risk stratification for surgery.
--- NOTE | 2016-10-14 08:41 | XRay Report ---
PORTABLE CHEST INDICATION: Left chest wall pain. COMPARISON: None similar at this institution. FINDINGS: Portable, frontal chest radiograph demonstrates normal cardiomediastinal silhouette. Some prominent lung markings centrally and toward the bases without focal consolidation, pleural effusions or CHF. Diffusely sclerotic bones, possibly diffuse metastatic versus metabolic, amongst others. CONCLUSION: No acute chest process with diffusely sclerotic bones, as described. Please correlate. Thank you for the opportunity to participate in this patient's care.
[2016-10-14] MEDS ORDERED: PNEUMOVAX 23 IM ONE (10:37)
[2016-10-14] MEDS: LOVENOX SUB-Q SCH (10:41)
[2016-10-14] MEDS: MORPHINE IV PRN ×2 (10:42→20:43)
--- NOTE | 2016-10-14 10:49 | Progress Note ---
Assessment and Plan Assessment and plan: 46-year-old woman with a history of reflux, fibromyalgia, pulmonary hypertensi will on, bipolar, PTSD, ADHD comes emergency room with complaints of left mid pain on the side, abdominal pain located in the right upper quadrant which she describes a burning sensation, constant for 3 days, intensity 8/10, radiating across the abdomen, she cannot identify exacerbating or relieving factors. Complaining of nausea vomiting. Acute cholecystitis is normal based on imaging there is a suspicion of acute cholecystitis, continue antibiotics, Surgery input appreciated, obtain HIDA scan Keep nothing by mouth GERD Continue PPI Pneumonia/pneumonitis has been ruled out, patient has no clinical signs of this. Imaging does show some chronic changes in the pleura and some groundglass opacities in the right upper quadrant. This appears to be chronic, patient is asymptomatic, no further management Pulmonary Hypertension Chronic and stable Hypertension Monitor blood pressure and give IV meds as needed, patient is currently nothing by mouth Bipolar, PTSD,ADHD obtain home med rec and continue home meds Elevated D-Dimer -CTA neg, obtain LE dopplers DVT ppx lovenox History Interval history: She continues to complain of right upper quadrant pain, pain is 7 out of 10, sharp, worse with deep inspiration, worse upon eating anything, complaining of anorexia Hospitalist Physical - Physical exam Narrative exam: General: Patient appears well in no distress HEENT: MMM, EOMI cardiac: S1-S2 heard lungs: clear to auscultation, abdomen: soft, right upper quadrant tenderness, Del Rio's sign positive, nondistended bowel sounds positive extremities: no edema clubbing or cyanosis Skin: no rash or lesion Neuro: no focal deficit Psych: appropriate behavior and mood, cognition intact - Constitutional Vitals: Temp Pulse Resp BP Pulse Ox 99.6 F 82 18 134/74 96 10/14/16 08:00 10/14/16 08:00 10/14/16 08:00 10/14/16 08:00 10/14/16 08:00 Results - Labs CBC & Chem 7: 10/15/16 04:58 10/15/16 04:58 Labs: Laboratory Last Values WBC 11.9 K/mm3 (4.5-11.0) H 10/13/16 11:31 RBC 5.18 M/mm3 (3.65-5.03) H 10/13/16 11:31 Hgb 12.0 gm/dl (10.1-14.3) 10/13/16 11:31 Hct 38.4 % (30.3-42.9) 10/13/16 11:31 MCV 74 fl (79-97) L 10/13/16 11:31 MCH 23 pg (28-32) L 10/13/16 11:31 MCHC 31 % (30-34) 10/13/16 11:31 RDW 26.1 % (13.2-15.2) H 10/13/16 11:31 Plt Count 357 K/mm3 (140-440) 10/13/16 11:31 Add Manual Diff Complete 10/13/16 11:31 Total Counted 100 10/13/16 11:31 Seg Neuts % (Manual) 84.0 % (40.0-70.0) H 10/13/16 11:31 Band Neutrophils % 0 % 10/13/16 11:31 Lymphocytes % (Manual) 11.0 % (13.4-35.0) L 10/13/16 11:31 Reactive Lymphs % (Man) 0 % 10/13/16 11:31 Monocytes % (Manual) 4.0 % (0.0-7.3) 10/13/16 11:31 Eosinophils % (Manual) 1.0 % (0.0-4.3) 10/13/16 11:31 Basophils % (Manual) 0 % (0.0-1.8) 10/13/16 11:31 Metamyelocytes % 0 % 10/13/16 11:31 Myelocytes % 0 % 10/13/16 11:31 Promyelocytes % 0 % 10/13/16 11:31 Blast Cells % 0 % 10/13/16 11:31 Nucleated RBC % Not Reportable 10/13/16 11:31 Seg Neutrophils # Man 10.0 K/mm3 (1.8-7.7) H 10/13/16 11:31 Band Neutrophils # 0.0 K/mm3 10/13/16 11:31 Lymphocytes # (Manual) 1.3 K/mm3 (1.2-5.4) 10/13/16 11:31 Abs React Lymphs (Man) 0.0 K/mm3 10/13/16 11:31 Monocytes # (Manual) 0.5 K/mm3 (0.0-0.8) 10/13/16 11:31 Eosinophils # (Manual) 0.1 K/mm3 (0.0-0.4) 10/13/16 11:31 Basophils # (Manual) 0.0 K/mm3 (0.0-0.1) 10/13/16 11:31 Metamyelocytes # 0.0 K/mm3 10/13/16 11:31 Myelocytes # 0.0 K/mm3 10/13/16 11:31 Promyelocytes # 0.0 K/mm3 10/13/16 11:31 Blast Cells # 0.0 K/mm3 10/13/16 11:31 WBC Morphology Not Reportable 10/13/16 11:31 Hypersegmented Neuts Not Reportable 10/13/16 11:31 Hyposegmented Neuts Not Reportable 10/13/16 11:31 Hypogranular Neuts Not Reportable 10/13/16 11:31 Smudge Cells Not Reportable 10/13/16 11:31 Toxic Granulation Not Reportable 10/13/16 11:31 Toxic Vacuolation Not Reportable 10/13/16 11:31 Dohle Bodies Not Reportable 10/13/16 11:31 Pelger-Huet Anomaly Not Reportable 10/13/16 11:31 Gladys Rods Not Reportable 10/13/16 11:31 Platelet Estimate Appears normal 10/13/16 11:31 Clumped Platelets Not Reportable 10/13/16 11:31 Plt Clumps, EDTA Not Reportable 10/13/16 11:31 Large Platelets Not Reportable 10/13/16 11:31 Giant Platelets Not Reportable 10/13/16 11:31 Platelet Satelliting Not Reportable 10/13/16 11:31 Plt Morphology Comment Not Reportable 10/13/16 11:31 RBC Morphology Not Reportable 10/13/16 11:31 Dimorphic RBCs Not Reportable 10/13/16 11:31 Polychromasia Not Reportable 10/13/16 11:31 Hypochromasia 1+ 10/13/16 11:31 Poikilocytosis Not Reportable 10/13/16 11:31 Anisocytosis 3+ 10/13/16 11:31 Microcytosis Not Reportable 10/13/16 11:31 Macrocytosis Not Reportable 10/13/16 11:31 Spherocytes Not Reportable 10/13/16 11:31 Pappenheimer Bodies Not Reportable 10/13/16 11:31 Sickle Cells Not Reportable 10/13/16 11:31 Target Cells Not Reportable 10/13/16 11:31 Tear Drop Cells Not Reportable 10/13/16 11:31 Ovalocytes Not Reportable 10/13/16 11:31 Helmet Cells Not Reportable 10/13/16 11:31 Miramontes-Young Harris Bodies Not Reportable 10/13/16 11:31 [place] Rings Not Reportable 10/13/16 11:31 Sharon Cells Not Reportable 10/13/16 11:31 Bite Cells Not Reportable 10/13/16 11:31 Crenated Cell Not Reportable 10/13/16 11:31 Elliptocytes Not Reportable 10/13/16 11:31 Acanthocytes (Spur) Not Reportable 10/13/16 11:31 Rouleaux Not Reportable 10/13/16 11:31 Hemoglobin C Crystals Not Reportable 10/13/16 11:31 Schistocytes Not Reportable 10/13/16 11:31 Malaria parasites Not Reportable 10/13/16 11:31 Mars Bodies Not Reportable 10/13/16 11:31 Hem Pathologist Commnt No 10/13/16 11:31 PT 14.5 Sec. (12.2-14.9) 10/13/16 21:21 INR 1.14 (0.87-1.13) H 10/13/16 21:21 APTT 29.3 Sec. (24.2-36.6) 10/13/16 21:21 D-Dimer 750.34 ng/mlDDU (0-234) H 10/13/16 21:21 Sodium 145 mmol/L (137-145) 10/13/16 11:31 Potassium 4.4 mmol/L (3.6-5.0) 10/13/16 11:31 Chloride 101.7 mmol/L (98-107) 10/13/16 11:31 Carbon Dioxide 28 mmol/L (22-30) 10/13/16 11:31 Anion Gap 20 mmol/L 10/13/16 11:31 BUN 5 mg/dL (7-17) L 10/13/16 11:31 Creatinine 0.6 mg/dL (0.7-1.2) L 10/13/16 11:31 Estimated GFR > 60 ml/min 10/13/16 11:31 BUN/Creatinine Ratio 8.33 % 10/13/16 11:31 Glucose 100 mg/dL (65-100) 10/13/16 11:31 Lactic Acid 0.70 mmol/L (0.7-2.0) 10/13/16 23:44 Calcium 9.7 mg/dL (8.4-10.2) 10/13/16 11:31 Total Bilirubin 0.50 mg/dL (0.1-1.2) 10/13/16 11:31 AST 18 units/L (5-40) 10/13/16 11:31 ALT 17 units/L (7-56) 10/13/16 11:31 Alkaline Phosphatase 104 units/L (35-129) 10/13/16 11:31 Total Protein 8.4 g/dL (6.3-8.2) H 10/13/16 11:31 Albumin 4.6 g/dL (3.9-5) 10/13/16 11:31 Albumin/Globulin Ratio 1.2 % 10/13/16 11:31 Lipase 15 units/L (13-60) 10/13/16 11:31 HCG, Qual Negative (Negative) 10/13/16 11:31 Urine Color Yellow (Yellow) 10/13/16 11:47 Urine Turbidity Clear (Clear) 10/13/16 11:47 Urine pH 7.0 (5.0-7.0) 10/13/16 11:47 Ur Specific [place] 1.015 (1.003-1.030) 10/13/16 11:47 Urine Protein 30 mg/dl mg/dL (Negative) 10/13/16 11:47 Urine Glucose (UA) Neg mg/dL (Negative) 10/13/16 11:47 Urine Ketones Tr mg/dL (Negative) 10/13/16 11:47 Urine Blood Sm (Negative) 10/13/16 11:47 Urine Nitrite Neg (Negative) 10/13/16 11:47 Urine Bilirubin Neg (Negative) 10/13/16 11:47 Urine Urobilinogen < 2.0 mg/dL (<2.0) 10/13/16 11:47 Ur Leukocyte Esterase Neg (Negative) 10/13/16 11:47 Urine WBC (Auto) 3.0 /HPF (0.0-6.0) 10/13/16 11:47 Urine RBC (Auto) 2.0 /HPF (0.0-6.0) 10/13/16 11:47 U Epithel Cells (Auto) 3.0 /HPF (0-13.0) 10/13/16 11:47 Urine Mucus Few /HPF 10/13/16 11:47 - Imaging and Cardiology CT scan - abdomen: image reviewed (GB thickening, containing 2cm stone with pericholic fluid) US - abdomen: image reviewed (GB thickening, containing 3cm stone and pericholic fluid)
[2016-10-14] MEDS: FLAGYL 500 MG/100 ML 500 MG/100 ML BAG IV SCH ×2 (13:13→21:32)
[2016-10-14] MEDS: PROTONIX IV SCH (13:17)
--- NOTE | 2016-10-14 13:26 | Consultation ---
History of Present Illness Consult date: 10/14/16 Consult reason: pre op evaluation History of present illness: This is a 46yr old woman who was sent from [place] with nausea, vomiting and abdominal pain admitted with acute cholecystitis. She is planned for a cholecystectomy. Cardiology consultation was requested for pre-op evaluation. She has no chest pain or shortness of breath. She denies prior cardiac history. Her ECG shows a normal sinus rhythm. Past History Past Surgical History: No surgical history Medications and Allergies Allergies Allergy/AdvReac Type Severity Reaction Status Date / Time acetaminophen Allergy Severe Vomiting Verified 09/11/16 00:25 [From Tylenol-Codeine #3] codeine phosphate Allergy Severe Vomiting Verified 09/11/16 00:25 [From Tylenol-Codeine #3] Home Medications Medication Instructions Recorded Confirmed Last Taken Type Pantoprazole [Protonix TAB] 20 mg PO QDAY 10/13/16 10/13/16 Unknown History Active Meds: Active Medications Bisacodyl (Dulcolax) 10 mg [place] QDAY PRN PRN Reason: Constipation unrelieved by MOM Enoxaparin Sodium (Lovenox) 40 mg SUB-Q QDAY [facility] Last Admin: 10/14/16 10:41 Dose: 40 mg Sodium Chloride (Nacl 0.45% 1000 Ml) 1,000 mls @ 125 mls/hr IV DIRECT [facility] Last Admin: 10/14/16 05:02 Dose: 125 mls/hr Metronidazole (Flagyl 500 Mg/100 Ml) 500 mg in 100 mls @ 100 mls/hr IV Q8HR [facility] Last Admin: 10/14/16 13:13 Dose: 100 mls/hr Piperacillin Sod/Tazobactam Sod (Zosyn/Ns 4.5gm/100ml) 4.5 gm in 100 mls @ 200 mls/hr IV Q8HR [facility] PRN Reason: Protocol Magnesium Hydroxide (Milk Of Magnesia) 30 ml PO Q4H PRN PRN Reason: Constipation Morphine Sulfate (Morphine) 2 mg IV Q4H PRN PRN Reason: Pain, Moderate (4-6) Last Admin: 10/14/16 10:42 Dose: 2 mg Ondansetron HCl (Zofran) 4 mg IV Q8H PRN PRN Reason: N/V unrelieved by Reglan Pantoprazole Sodium (Protonix) 40 mg IV QDAY [facility] Last Admin: 10/14/16 13:17 Dose: 40 mg Physical Examination Vital Signs Temp Pulse Resp BP Pulse Ox 98.0 F 66 18 171/104 99 10/13/16 11:11 10/13/16 11:11 10/13/16 11:11 10/13/16 11:11 10/13/16 11:11 General appearance: no acute distress HEENT: Positive: PERRL Cardiac: Positive: Reg Rate and Rhythm Results 10/13/16 11:31 10/13/16 11:31 Assessment and Plan Acute Cholecystitis Pre-op cardiac evaluation Recommend: Echocardiogram for LVEF assessment.
--- NOTE | 2016-10-14 14:51 | Anesthesia Consultation ---
Anesthesia Consult and Med Hx Date of service: 10/14/16 - Airway Anesthetic Teeth Evaluation: Poor (some broken teeth, one missing tooth) ROM Head & Neck: Adequate Mental/Hyoid Distance: Adequate Mallampati Class: Class II Intubation Access Assessment: Probably Good - Pre-Operative Health Status ASA Pre-Surgery Classification: ASA3 Proposed Anesthetic Plan: General - Pulmonary Hx Smoking: Yes (current smoker) COPD: No Hx Pneumonia: No - Cardiovascular System Hx Hypertension: Yes (mild pulmonary hypertention) - Central Nervous System Hx Psychiatric Problems: Yes (PTSD, depression,transferred from [facility]) - Gastrointestinal Hx Gastroesophageal Reflux Disease: Yes (nausea/vomiting) - Endocrine Hx End Stage Renal Disease: No - Hematic Hx Anemia: Yes - Other Systems Hx Alcohol Use: Yes (not often) - Additional Comments Anesthesia Medical History Comments: cleared by element setter
[2016-10-14] MEDS: ZOSYN/NS 4.5GM/100ML 4.5 GM/100 ML VIAL IV SCH ×2 (15:38→21:33)
[2016-10-15] MEDS: NACL 0.45% 1000 ML 1,000 ML IV SCH ×2 (03:13→22:39)
[2016-10-15] MEDS: MORPHINE IV PRN ×2 (03:13→20:32)
[2016-10-15 05:26] LABS: Hematocrit 30.7 % (30.3-42.9); Hemoglobin 9.6 gm/dl (10.1-14.3); Mean Corpuscular HGB Conc 31 % (30-34); Mean Corpuscular Volume 74 fl (79-97); Platelet Count 240 K/mm3 (140-440); Red Blood Count 4.13 M/mm3 (3.65-5.03); White Blood Count 9.1 K/mm3 (4.5-11.0)
[2016-10-15] MEDS: ZOSYN/NS 4.5GM/100ML 4.5 GM/100 ML VIAL IV SCH ×3 (05:27→22:44)
[2016-10-15] MEDS: FLAGYL 500 MG/100 ML 500 MG/100 ML BAG IV SCH ×3 (05:28→21:00)
[2016-10-15 05:31] LABS: Mean Corpuscular Hemoglobin 23 pg (28-32); Red Cell Distribution Width 26.1 % (13.2-15.2)
[2016-10-15 06:19] LABS: Blood Urea Nitrogen 6 mg/dL (7-17); Calcium 8.8 mg/dL (8.4-10.2); Carbon Dioxide 20 mmol/L (22-30); Chloride 98.9 mmol/L (98-107); Glucose 62 mg/dL (65-100); Sodium 141 mmol/L (137-145)
[2016-10-15 06:23] LABS: Potassium 3.4 mmol/L (3.6-5.0)
[2016-10-15 06:35] LABS: Anion Gap 26 mmol/L
[2016-10-15] MEDS ORDERED: PEPCID IV ONE (07:00)
[2016-10-15] MEDS ORDERED: LACTATED RINGERS 1,000 ML IV SCH (07:00)
[2016-10-15] MEDS ORDERED: VERSED IV NR (07:00)
--- NOTE | 2016-10-15 07:00 | Vascular Lab Report ---
LOWER EXTREMITY VENOUS DUPLEX: REASON FOR EXAM: Edema of the lower extremities. COMMENTS ON THE RIGHT: All veins visualized are freely compressible without evidence of internal echogenicity. Flow is spontaneous and phasic throughout. COMMENTS ON THE LEFT: All veins visualized are freely compressible without evidence of internal echogenicity. Flow is spontaneous and phasic throughout. IMPRESSION: No evidence of acute or chronic deep venous thrombosis in either lower extremity.
[2016-10-15 07:03] LABS: Basophils % (Manual) 0 % (0.0-1.8); Blastocytes % (Manual) 0 %
[2016-10-15 07:04] LABS: Anisocytosis 3+; Diff Status Complete; Hypochromasia 1+; Platelet Estimate Consistent w Auto; Polychromasia Rare
[2016-10-15] MEDS ORDERED: DECADRON ONE (07:10)
[2016-10-15] MEDS ORDERED: ZEMURON IV ONE (07:10)
[2016-10-15] MEDS ORDERED: ROBINUL ONE ×2 (07:10)
[2016-10-15] MEDS ORDERED: ZOFRAN ONE (07:10)
[2016-10-15] MEDS ORDERED: XYLOCAINE MPF 2% ONE (07:10)
[2016-10-15] MEDS ORDERED: NEOSTIGMINE ONE (07:11)
[2016-10-15] MEDS ORDERED: XYLOCAINE 1% 20 mL INFILTRATI ONE (08:19)
[2016-10-15] MEDS ORDERED: MARCAINE 0.5% INFILTRATI ONE (08:19)
[2016-10-15] MEDS ORDERED: NACL 0.9% IR ONE ×2 (08:20)
[2016-10-15] MEDS ORDERED: SUBLIMAZE ONE (08:51)
[2016-10-15] MEDS ORDERED: DIPRIVAN 10 MG/ML IV ONE (08:51)
[2016-10-15] MEDS ORDERED: DILAUDID ONE (08:51)
[2016-10-15] MEDS ORDERED: MARCAINE 0.5% 30 ML INFILTRATI ONE (08:54)
[2016-10-15] MEDS ORDERED: XYLOCAINE 1% 20 mL ONE (08:54)
--- NOTE | 2016-10-15 09:12 | Nuclear Medicine Report ---
Hepatobiliary scan: Examination performed with 5 mCi technetium 99m Choletec. History: Abdominal pain. Findings: Uniform distribution of activity in the liver with subsequent clearance into the biliary system. The gallbladder isn't visualized. Duodenum is visualized in the normal time. No significant persistence of activity in the liver in delayed images. Impression: Findings suggestive cystic duct obstruction.
[2016-10-15] MEDS ORDERED: LACTATED RINGERS 1,000 ML ONE ×2 (09:19→11:03)
[2016-10-15] MEDS ORDERED: NACL BACTERIOSTATIC INFILTRATI ONE (09:30)
[2016-10-15] MEDS ORDERED: TORADOL IV PRN (09:56)
[2016-10-15] MEDS ORDERED: TORADOL ONE (10:11)
--- NOTE | 2016-10-15 11:04 | Post Operative Note ---
Pre-op diagnosis: acute cholecystitis Post-op diagnosis: same Findings: C/W acute cholecystitis c Procedure: Laparoscopic cholecystectomy Anesthesia: GETA Surgeon: KEE QUACH Chief Executive Officer: BASIA ALLEN Estimated blood loss: minimal Pathology: none (GB) Specimen disposition: to lab Condition: stable Disposition: floor
--- NOTE | 2016-10-15 11:10 | Progress Note ---
Assessment and Plan Acute Cholecystitis Pre-op cardiac evaluation Tobacco abuse Echocardiogram done demonstrates normal left ventricle systolic function, ejection fraction 55-60%. There was mild pulmonary hypertension with a pulmonary artery systolic pressure of 35 mmHg. Recommendations: Smoking cessation. The patient is stable from a cardiac standpoint to undergo gallbladder surgery. Okay to proceed. Subjective Date of service: 10/15/16 Interval history: For GB surgery today. Objective Vital Signs Temp Pulse Resp BP Pulse Ox 10/15/16 08:55 100.2 F H 79 18 128/77 94 10/15/16 00:00 99.3 F 82 18 118/63 96 10/14/16 21:24 95 10/14/16 16:01 100.6 F H 89 18 115/57 95 - Labs and Meds CBC 10/15/16 Range/Units 04:58 WBC 9.1 (4.5-11.0) K/mm3 RBC 4.13 (3.65-5.03) M/mm3 Hgb 9.6 L (10.1-14.3) gm/dl Hct 30.7 D (30.3-42.9) % Plt Count 240 (140-440) K/mm3 Comprehensive Metabolic Panel 10/15/16 Range/Units 04:58 Sodium 141 (137-145) mmol/L Potassium 3.4 L D (3.6-5.0) mmol/L Chloride 98.9 (98-107) mmol/L Carbon Dioxide 20 L D (22-30) mmol/L BUN 6 L (7-17) mg/dL Creatinine 0.4 L (0.7-1.2) mg/dL Glucose 62 L (65-100) mg/dL Calcium 8.8 (8.4-10.2) mg/dL
--- NOTE | 2016-10-15 11:46 | Post Anesthesia Evaluation ---
- Post Anesthesia Evaluation Patient Participated: Yes Airway Patent: Yes Stable Respiratory Function: Yes Nausea/Vomiting: No Temp > 96.8F: Yes Pain Manageable: Yes Adequeate Hydration: Yes Anesthesia Complications: No Block Receding Appropriately: Not Applicable Patient on Ventilator: No
[2016-10-15] MEDS: LOVENOX SUB-Q SCH (12:00)
[2016-10-15] MEDS ORDERED: TORADOL PO PRN (13:01)
--- NOTE | 2016-10-15 13:42 | Operative Report ---
PREOPERATIVE DIAGNOSIS: Acute cholecystitis. POSTOPERATIVE DIAGNOSIS: Acute cholecystitis. PROCEDURE: Laparoscopic cholecystectomy. OPERATIVE FINDINGS: Compatible with acute cholecystitis. ANESTHESIA: General. SURGEON: Troy Garnett MD EMPLOYEE COMMUNICATIONS COORDINATOR: Celena Covington M.D. BLOOD LOSS: Minimal. PATHOLOGY: Consisted of the gallbladder. CONDITION: Stable. DISPOSITION: To the floor. DESCRIPTION OF PROCEDURE: After informed consent, the patient was brought to the operating room, induced under general anesthesia. She was already on IV antibiotics. She was sterilely prepped and draped in the supine fashion for standard laparoscopic cholecystectomy. She was sterilely prepped and draped. A skin wheal was raised in the subumbilical position, 0.5% Marcaine with 1% lidocaine was used to numb the skin. A small incision was made with 11 blade and then the Veress needle was introduced, tested and found to be satisfactorily placed. The intraabdominal cavity was insufflated to acceptable parameters with CO2. The Veress needle was removed and under direct visualization with a 5-mm 0-degree scope, a 5 mm port was placed. All the other ports were performed under direct visualization with the laparoscope. In a like fashion, two 5 mm ports were placed in the midclavicular and mid axillary line. A 10 mm port was placed in the subxiphoid position. The patient was then positioned properly. The operative findings were compatible with acute cholecystitis. The gallbladder was aspirated with a 60 mL syringe with hydrops bile to take the tension off the wall. Traction then was placed on the apex of the body of the gallbladder in a cephalad direction over the right lobe of the liver. Lateral traction was placed on the infundibulum. Utilizing a Kitner dissector identified and dissected out the lymph node of [place], cystic duct, cystic artery, common hepatic, and common bile duct. Therefore, the critical view of [place] or the triangle of safety was established. I placed clips on the cystic duct proximally and distally, it was cut and the clips were securely in place with no leakage of bile. I placed clips on the cystic artery proximally and distally, it was cut, the clips were securely in place with no bleeding. Then, the gallbladder was taken out retrograde with a J-hook and removed in the gallbladder bag. Some Nabor was placed in the gallbladder fossa. The hemostasis was excellent. Prior to this, I washed out the abdomen with Ne[place]hat irrigation system until clear and then I withdrew the ports under direct visualization of the laparoscope. There was no bleeding from the anterior abdominal wall. I closed the 10 mm port sites fascia with the gallbladder removed with a UR 6-0 Vicryl and 4-0 Monocryl was used for the skin with Dermaflex. JOB# [id number] JEANNETTE/NANDINI
--- NOTE | 2016-10-15 16:23 | Progress Note ---
Assessment and Plan Assessment and plan: 46-year-old woman with a history of reflux, fibromyalgia, pulmonary hypertensi will on, bipolar, PTSD, ADHD comes emergency room with complaints of left mid pain on the side, abdominal pain located in the right upper quadrant which she describes a burning sensation, constant for 3 days, intensity 8/10, radiating across the abdomen, she cannot identify exacerbating or relieving factors. Complaining of nausea vomiting. Acute cholecystitis is normal based on imaging there is a suspicion of acute cholecystitis, continue antibiotics, Status post cholecystectomy, continue clear liquid diet, advance diet as tolerated Tentative discharge home tomorrow GERD Continue PPI Pneumonia/pneumonitis has been ruled out, patient has no clinical signs of this. Imaging does show some chronic changes in the pleura and some groundglass opacities in the right upper quadrant. This appears to be chronic, patient is asymptomatic, no further management Pulmonary Hypertension Chronic and stable Hypertension Optimize medications, will start blood pressure medications slowly Bipolar, PTSD,ADHD obtain home med rec and continue home meds Elevated D-Dimer -CTA neg, LE dopplers also negative DVT ppx lovenox History Interval history: She is status post cholecystectomy today. She feels a lot better, Hospitalist Physical - Physical exam Narrative exam: General: Patient appears well in no distress HEENT: MMM, EOMI cardiac: S1-S2 heard lungs: clear to auscultation, abdomen: soft, nontender, nondistended bowel sounds positive extremities: no edema clubbing or cyanosis Skin: no rash or lesion Neuro: no focal deficit Psych: appropriate behavior and mood, cognition intact - Constitutional Vitals: Temp Pulse Resp BP Pulse Ox 97.8 F 77 16 114/70 99 10/15/16 12:25 10/15/16 12:25 10/15/16 12:25 10/15/16 12:25 10/15/16 12:25 General appearance: Present: no acute distress Results - Labs CBC & Chem 7: 10/15/16 04:58 10/15/16 04:58 Labs: Laboratory Last Values WBC 9.1 K/mm3 (4.5-11.0) 10/15/16 04:58 RBC 4.13 M/mm3 (3.65-5.03) 10/15/16 04:58 Hgb 9.6 gm/dl (10.1-14.3) L 10/15/16 04:58 Hct 30.7 % (30.3-42.9) D 10/15/16 04:58 MCV 74 fl (79-97) L 10/15/16 04:58 MCH 23 pg (28-32) L 10/15/16 04:58 MCHC 31 % (30-34) 10/15/16 04:58 RDW 26.1 % (13.2-15.2) H 10/15/16 04:58 Plt Count 240 K/mm3 (140-440) 10/15/16 04:58 Add Manual Diff Complete 10/15/16 04:58 Total Counted 100 10/15/16 04:58 Seg Neuts % (Manual) 73.0 % (40.0-70.0) H 10/15/16 04:58 Band Neutrophils % 8.0 % 10/15/16 04:58 Lymphocytes % (Manual) 10.0 % (13.4-35.0) L 10/15/16 04:58 Reactive Lymphs % (Man) 0 % 10/15/16 04:58 Monocytes % (Manual) 7.0 % (0.0-7.3) 10/15/16 04:58 Eosinophils % (Manual) 2.0 % (0.0-4.3) 10/15/16 04:58 Basophils % (Manual) 0 % (0.0-1.8) 10/15/16 04:58 Metamyelocytes % 0 % 10/15/16 04:58 Myelocytes % 0 % 10/15/16 04:58 Promyelocytes % 0 % 10/15/16 04:58 Blast Cells % 0 % 10/15/16 04:58 Nucleated RBC % Not Reportable 10/15/16 04:58 Seg Neutrophils # Man 6.6 K/mm3 (1.8-7.7) 10/15/16 04:58 Band Neutrophils # 0.7 K/mm3 10/15/16 04:58 Lymphocytes # (Manual) 0.9 K/mm3 (1.2-5.4) L 10/15/16 04:58 Abs React Lymphs (Man) 0.0 K/mm3 10/15/16 04:58 Monocytes # (Manual) 0.6 K/mm3 (0.0-0.8) 10/15/16 04:58 Eosinophils # (Manual) 0.2 K/mm3 (0.0-0.4) 10/15/16 04:58 Basophils # (Manual) 0.0 K/mm3 (0.0-0.1) 10/15/16 04:58 Metamyelocytes # 0.0 K/mm3 10/15/16 04:58 Myelocytes # 0.0 K/mm3 10/15/16 04:58 Promyelocytes # 0.0 K/mm3 10/15/16 04:58 Blast Cells # 0.0 K/mm3 10/15/16 04:58 WBC Morphology Not Reportable 10/15/16 04:58 Hypersegmented Neuts Not Reportable 10/15/16 04:58 Hyposegmented Neuts Not Reportable 10/15/16 04:58 Hypogranular Neuts Not Reportable 10/15/16 04:58 Smudge Cells Not Reportable 10/15/16 04:58 Toxic Granulation Not Reportable 10/15/16 04:58 Toxic Vacuolation Not Reportable 10/15/16 04:58 Dohle Bodies Not Reportable 10/15/16 04:58 Pelger-Huet Anomaly Not Reportable 10/15/16 04:58 Gladys Rods Not Reportable 10/15/16 04:58 Platelet Estimate Consistent w auto 10/15/16 04:58 Clumped Platelets Not Reportable 10/15/16 04:58 Plt Clumps, EDTA Not Reportable 10/15/16 04:58 Large Platelets Not Reportable 10/15/16 04:58 Giant Platelets Not Reportable 10/15/16 04:58 Platelet Satelliting Not Reportable 10/15/16 04:58 Plt Morphology Comment Not Reportable 10/15/16 04:58 RBC Morphology Not Reportable 10/15/16 04:58 Dimorphic RBCs Not Reportable 10/15/16 04:58 Polychromasia Rare 10/15/16 04:58 Hypochromasia 1+ 10/15/16 04:58 Poikilocytosis Not Reportable 10/15/16 04:58 Anisocytosis 3+ 10/15/16 04:58 Microcytosis Not Reportable 10/15/16 04:58 Macrocytosis Not Reportable 10/15/16 04:58 Spherocytes Not Reportable 10/15/16 04:58 Pappenheimer Bodies Not Reportable 10/15/16 04:58 Sickle Cells Not Reportable 10/15/16 04:58 Target Cells Not Reportable 10/15/16 04:58 Tear Drop Cells Not Reportable 10/15/16 04:58 Ovalocytes Not Reportable 10/15/16 04:58 Helmet Cells Not Reportable 10/15/16 04:58 [place] Bodies Not Reportable 10/15/16 04:58 [place] Rings Not Reportable 10/15/16 04:58 Verna Cells Not Reportable 10/15/16 04:58 Bite Cells Not Reportable 10/15/16 04:58 Crenated Cell Not Reportable 10/15/16 04:58 Elliptocytes Not Reportable 10/15/16 04:58 Acanthocytes (Spur) Not Reportable 10/15/16 04:58 Rouleaux Not Reportable 10/15/16 04:58 Hemoglobin C Crystals Not Reportable 10/15/16 04:58 Schistocytes Not Reportable 10/15/16 04:58 Malaria parasites Not Reportable 10/15/16 04:58 Mars Bodies Not Reportable 10/15/16 04:58 Hem Pathologist Commnt No 10/15/16 04:58 PT 14.5 Sec. (12.2-14.9) 10/13/16 21:21 INR 1.14 (0.87-1.13) H 10/13/16 21:21 APTT 29.3 Sec. (24.2-36.6) 10/13/16 21:21 D-Dimer 750.34 ng/mlDDU (0-234) H 10/13/16 21:21 Sodium 141 mmol/L (137-145) 10/15/16 04:58 Potassium 3.4 mmol/L (3.6-5.0) L D 10/15/16 04:58 Chloride 98.9 mmol/L (98-107) 10/15/16 04:58 Carbon Dioxide 20 mmol/L (22-30) L D 10/15/16 04:58 Anion Gap 26 mmol/L 10/15/16 04:58 BUN 6 mg/dL (7-17) L 10/15/16 04:58 Creatinine 0.4 mg/dL (0.7-1.2) L 10/15/16 04:58 Estimated GFR > 60 ml/min 10/15/16 04:58 BUN/Creatinine Ratio 15.00 % 10/15/16 04:58 Glucose 62 mg/dL (65-100) L 10/15/16 04:58 Lactic Acid 0.70 mmol/L (0.7-2.0) 10/13/16 23:44 Calcium 8.8 mg/dL (8.4-10.2) 10/15/16 04:58 Total Bilirubin 0.50 mg/dL (0.1-1.2) 10/13/16 11:31 AST 18 units/L (5-40) 10/13/16 11:31 ALT 17 units/L (7-56) 10/13/16 11:31 Alkaline Phosphatase 104 units/L (35-129) 10/13/16 11:31 Total Protein 8.4 g/dL (6.3-8.2) H 10/13/16 11:31 Albumin 4.6 g/dL (3.9-5) 10/13/16 11:31 Albumin/Globulin Ratio 1.2 % 10/13/16 11:31 Lipase 15 units/L (13-60) 10/13/16 11:31 HCG, Qual Negative (Negative) 10/13/16 11:31 Urine Color Yellow (Yellow) 10/13/16 11:47 Urine Turbidity Clear (Clear) 10/13/16 11:47 Urine pH 7.0 (5.0-7.0) 10/13/16 11:47 Ur Specific [place] 1.015 (1.003-1.030) 10/13/16 11:47 Urine Protein 30 mg/dl mg/dL (Negative) 10/13/16 11:47 Urine Glucose (UA) Neg mg/dL (Negative) 10/13/16 11:47 Urine Ketones Tr mg/dL (Negative) 10/13/16 11:47 Urine Blood Sm (Negative) 10/13/16 11:47 Urine Nitrite Neg (Negative) 10/13/16 11:47 Urine Bilirubin Neg (Negative) 10/13/16 11:47 Urine Urobilinogen < 2.0 mg/dL (<2.0) 10/13/16 11:47 Ur Leukocyte Esterase Neg (Negative) 10/13/16 11:47 Urine WBC (Auto) 3.0 /HPF (0.0-6.0) 10/13/16 11:47 Urine RBC (Auto) 2.0 /HPF (0.0-6.0) 10/13/16 11:47 U Epithel Cells (Auto) 3.0 /HPF (0-13.0) 10/13/16 11:47 Urine Mucus Few /HPF 10/13/16 11:47
[2016-10-15] MEDS: PROTONIX IV SCH (19:59)
[2016-10-15] MEDS: PEPCID IV SCH (22:40)
[2016-10-16] MEDS: ZOSYN/NS 4.5GM/100ML 4.5 GM/100 ML VIAL IV SCH (06:07)
[2016-10-16] MEDS: MORPHINE IV PRN (06:20)
[2016-10-16] MEDS: FLAGYL 500 MG/100 ML 500 MG/100 ML BAG IV SCH (06:53)
--- NOTE | 2016-10-16 07:50 | Discharge Summary ---
Providers - Providers Date of Admission: 10/14/16 02:19 Attending physician: JAZMYN AARON MD 10/14/16 07:45 Consult to Cardiology [CONS] Urgent Consulting Provider: LEE FRANCIS Reason For Exam: surgical clearance for cholecystectomy, pulm htn? 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 She was found to have acute cholecystitis, she received IV fluids and antibiotics, supportive treatment. I went on to have a cholecystectomy. She clinically improved status post cholecystectomy and is being discharged home on pain medications. Of note she did have elevated blood pressure is most likely due to pain resolved without any specific intervention. She was continued on her home medications when she was able to eat. She had an elevated d-dimer that was most likely due to inflammatory response, acute cholecystitis. CTA of her chest and lower tremor Dopplers were negative for DVT. She was seen in conjunction with general surgery. Discharge diagnoses Acute cholecystitis GERD Bipolar disorder, PTSD, ADHD Elevated d-dimer Sepsis Disposition: DC- TO HOME OR SELFCARE Time spent for discharge: 32 minutes Core Measure Documentation - Palliative Care Palliative Care/ Comfort Measures: Not Applicable - Core Measures Any of the following diagnoses?: none Exam - Constitutional Vitals: Temp Pulse Resp BP Pulse Ox 99.7 F H 81 16 104/58 100 10/16/16 00:05 10/16/16 00:05 10/16/16 06:20 10/16/16 00:05 10/16/16 00:05 General appearance: Present: no acute distress, well-nourished - EENT Eyes: Present: PERRL ENT: hearing intact, clear oral mucosa - Neck Neck: Present: supple, normal ROM - Respiratory Respiratory effort: normal Respiratory: bilateral: CTA - Cardiovascular Heart Sounds: Present: S1 & S2. Absent: rub, click - Extremities Extremities: pulses symmetrical, No edema Peripheral Pulses: within normal limits - Abdominal General gastrointestinal: Present: soft, non-tender, non-distended, normal bowel sounds Female genitourinary: Present: normal - Integumentary Integumentary: Present: clear, warm, dry - Musculoskeletal Musculoskeletal: gait normal, strength equal bilaterally - Psychiatric Psychiatric: appropriate mood/affect, intact judgment & insight - Neurologic Neurologic: CNII-XII intact, moves all extremities Plan Follow up with: PRIMARY CARE, [Primary Care Provider] - 3-5 Days KEE QUACH MD [Staff Physician] - 7 Days Prescriptions: oxyCODONE /ACETAMINOPHEN [Percocet 5/325] 1 tab PO Q6HR PRN #20 tablet PRN Reason: Pain Pantoprazole [Protonix TAB] 20 mg PO QDAY #30 tablet.
[2016-10-16 08:05] VITALS: BP 114/56
--- NOTE | 2016-10-16 08:20 | Event Note ---
Date: 10/16/16 POD 1 s/p uneventful lap autumn, doing well, VSS AF, incisions OK, tolerating diet, OK to discharge patient from General Surgical standpoint, I will follow up in my office in one week.
--- NOTE | 2016-10-16 08:32 | Progress Note ---
Assessment and Plan Acute Cholecystitis s/p cholecystectomy Pre-op cardiac evaluation Tobacco abuse Echocardiogram done demonstrates normal left ventricle systolic function, ejection fraction 55-60%. There was mild pulmonary hypertension with a pulmonary artery systolic pressure of 35 mmHg. Recommendations: Smoking cessation. The patient is stable from a cardiac standpoint to be discharged Subjective Date of service: 10/16/16 Principal diagnosis: Preop cardiac clearance Interval history: Patient is doing well She denies chest pain or shortness of breath No perioperative cardiac complications or events Objective Vital Signs Temp Pulse Pulse Resp Resp BP Pulse Ox 10/16/16 07:00 98.4 F 77 20 114/56 100 10/16/16 06:20 16 10/16/16 00:05 99.7 F H 81 20 104/58 100 10/15/16 22:00 68 16 96 10/15/16 21:02 17 10/15/16 20:10 100.1 F H 78 18 142/79 95 10/15/16 17:07 97 10/15/16 16:00 97.4 F L 66 20 131/67 10/15/16 12:25 97.8 F 77 16 114/70 99 10/15/16 12:20 97.8 F 76 16 114/70 99 10/15/16 12:05 97.5 F L 69 19 106/69 100 10/15/16 11:50 69 18 99/52 100 10/15/16 11:35 66 17 104/53 100 10/15/16 11:20 63 15 106/64 100 10/15/16 11:15 74 19 112/61 100 10/15/16 11:10 64 22 104/54 100 10/15/16 11:07 97.9 F 70 20 116/62 99 10/15/16 08:55 100.2 F H 79 18 128/77 94 - Physical Examination HEENT: Positive: PERRL Neck: Positive: neck supple Cardiac: Positive: Reg Rate and Rhythm Lungs: Positive: Normal Exam Neuro: Positive: Grossly Intact
[2016-10-16] MEDS: PEPCID IV SCH (09:52)
== END 2016-10-16 13:14 | disposition home or self-care (01) | DRG 854 ==
LOC: ED 11:00 → 3A 10-14 02:19
PROVIDERS: ADMIT Internal Medicine; ATTEND Internal Medicine
PROC: 3E0234Z Introduction of Serum, Toxoid and Vaccine into Muscle, Percutaneous Approach (ICD-10-PCS; principal; 2016-10-14)
PROC: 0FT44ZZ Resection of Gallbladder, Percutaneous Endoscopic Approach (ICD-10-PCS; 2016-10-15)
DX: A41.9 Sepsis, unspecified organism (principal); K81.0 Acute cholecystitis; M79.7 Fibromyalgia; D64.9 Anemia, unspecified; I27.2 Other secondary pulmonary hypertension; K21.9 Gastro-esophageal reflux disease without esophagitis; F31.9 Bipolar disorder, unspecified; F43.10 Post-traumatic stress disorder, unspecified; F90.9 Attention-deficit hyperactivity disorder, unspecified type; F17.210 Nicotine dependence, cigarettes, uncomplicated; I10 Essential (primary) hypertension; Z88.6 Allergy status to analgesic agent; Z88.0 Allergy status to penicillin; Z91.018 Allergy to other foods; Z23 Encounter for immunization
CPT/HCPCS: 36415; 71010; 71275; 74177; 76705; 78226; 80048; 80053; 81001; 82140; 83690; 84703; 85007; 85025; 85379; 85610; 85730; 87040; 88304; 90732; 93005; 93010; 93306; 93970; 94760; 96361; 96365; 96372; 96375; 99285; 99406; A4217; A9537; C9113; J0456; J0500; J0696; J1100; J1170; J1650; J1885; J1956; J2250; J2270; J2405; J2543; J2704; J2710; J3010; J7030; J7050; J7120; Q9967